=== PATIENT | female | born 1950 | race African-American/Black ===

== ENCOUNTER 2018-08-19 22:23 | Emergency (ER) | payer MEDICAID ==
[~2018-08-19] VITALS: Ht 157.5 cm; Wt 72.6 kg
[2018-08-19 22:26] VITALS: BP 126/66
--- NOTE | 2018-08-19 22:26 | NUR ---
TO BED # 6 VIA W/C, REPORT GIVEN TO KENIA ROSS
--- NOTE | 2018-08-19 22:30 | NUR ---
PT PRESENTED ER WITH POST STATUS FALL. PT FELL ANF HIT SOME WOOD AND SCRATCHED HIS LEFT ARM TODAY. AN ABRASION TO THE LEFT FOREARM. SOME MINOR BRUSING AND SMALL LACERASIONS TO THE ARM. PT IS A/O X 4. PT STATES NO PAIN AT THIS TIME 0/10. NKA AND MEDICAL HX IS DM AND COLON CANCER. FAMILY AT BEDSIDE. SKIN IS PINK/WARM/DRY; VSS; PATIENT POSITIONED FOR COMFORT; HOB ELEVATED; BEDRAILS UP X2; BED DOWN. ER MD MADE AWARE OF PT STATUS.
[2018-08-19] MEDS ORDERED: ONDANSETRON 4 MG/2 ML VIAL IVP ONE ×2 (22:50→23:25)
[2018-08-19] MEDS ORDERED: fentaNYL 0.05 MG/ML VIAL IVP ONE (22:50)
[2018-08-20 00:03] LABS: BASOPHILS % (AUTO) 0.2 % (0.0-2.0); EOSINOPHILS # (AUTO) 0.1 K/uL (0-0.4); EOSINOPHILS % (AUTO) 0.8 % (0.0-4.0); HEMATOCRIT 39.8 % (36-48); HEMOGLOBIN 13.2 g/dL (12.0-16.0); LYMPHOCYTES # (AUTO) 2.3 K/uL (2.5-16.5); LYMPHOCYTES % (AUTO) 25.3 % (20.5-51.1); MEAN CORPUSCULAR HEMOGLOBIN 32 pg (27-31); MEAN CORPUSCULAR HGB CONC 33 g/dL (33-37); MEAN CORPUSCULAR VOLUME 97.7 fL (80-94); MONOCYTES # (AUTO) 0.6 K/uL (0.8-1.0); MONOCYTES % (AUTO) 7.2 % (1.7-9.3); NEUTROPHILS # (AUTO) 5.9 K/uL (1.8-7.7); NEUTROPHILS % (AUTO) 66.5 % (42.2-75.2); PLATELET COUNT (AUTO) 305 K/uL (140-450); RED BLOOD CELL COUNT(AUTO) 4.07 MIL/uL (4.20-5.40)
--- NOTE | 2018-08-20 00:05 | NUR ---
pt sitting up in bed, vitals stable.
[2018-08-20 00:11] LABS: ANION GAP 4.2 (8-16); CARBON DIOXIDE 28.3 mmol/L (21-32); CREATININE 1.2 mg/dL (0.6-1.3); POTASSIUM 3.5 mmol/L (3.5-5.1)
[2018-08-20 00:17] LABS: ALBUMIN 3.7 g/dL (3.4-5.0); TOTAL BILIRUBIN 0.4 mg/dL (0.0-1.0)
[2018-08-20 00:20] LABS: PROTHROMBIN TIME 9.9 secs (10.8-13.4)
[2018-08-20] MEDS ORDERED: MORPHINE SULFATE 4 MG/ML SYR IVP ONE (00:20)
--- NOTE | 2018-08-20 01:30 | NUR ---
PT RESTING IN BED, VITALS STABLE. SON AT [facility], WAITING FOR TRANSFER.
--- NOTE | 2018-08-20 02:30 | NUR ---
CALLED TO GIVE REPORT TO [facility] ER X 4, NO RESPONSE. THE PHONE RANG. NOTIFIED.
--- NOTE | 2018-08-20 02:36 | NUR ---
CALLED TO GIVE REPORT TO [facility], GAVE REPORT TO JENIFER ROSS.
--- NOTE | 2018-08-20 02:36 | NUR ---
Patient to be transferred to [facility] ER. Is being transferred due to MID SHAFT HUMERAL DISPLACED. Receiving facility has accepting physician and available space. ER physician has signed transfer form. Patient or responsible republican has agreed to transfer and signed form. Patient belongings inventoried and will be sent with patient. Copy of nursing notes, lab reports, EKG, Physicians Orders and X-rays to be sent with patient. Report called to LALI ROSS at receiving facility. [facility] ambulance service has been called for transfer. ETA is 10 MINUTES.
[2018-08-20 03:08] VITALS: BP 120/67
--- NOTE | 2018-08-20 03:08 | NUR ---
Patient transfered with v/s stable. Written and verbal after care instructions given and explained. Patient verbalized understanding. Ambulance Transport with to [facility]. All questions addressed prior to transfer. Advised to follow up with PMD.
== END 2018-08-20 03:08 | disposition short-term general hospital (02) ==
LOC: MED 22:23
DX: M84.421A Pathological fracture, right humerus, initial encounter for fracture (principal)
CPT/HCPCS: 29105; 36415; 71045; 73060; 73090; 80053; 84484; 85025; 85610; 85730; 96374; 96375; 99285; J2270; J2405; J3010; Q0092